=== PATIENT | female | born 1995 ===

== ENCOUNTER 2017-06-02 14:24 | Emergency (ER) | payer OTHER ==
[~2017-06-02] VITALS: Ht 180.3 cm; Wt 72.6 kg
== END 2017-06-02 15:20 | disposition short-term general hospital (02) ==
LOC: ER 14:24
PROC: 0HQ1XZZ Repair Face Skin, External Approach (ICD-10-PCS; principal; 2017-06-02)
DX: S06.0X9A Concussion with loss of consciousness of unspecified duration, initial encounter (principal); S01.81XA Laceration without foreign body of other part of head, initial encounter; Z23 Encounter for immunization; W55.12XA Struck by horse, initial encounter; Y93.52 Activity, horseback riding; Y99.8 Other external cause status